=== PATIENT | male | born 1970 | race Hispanic/Latino ===

== ENCOUNTER → 2024-07-28 | Outpatient (CLI) | payer OTHER | END | disposition home or self-care (01) | LOC: SHCH 08:55 | PROVIDERS: ATTEND Student in an Organized Health Care Education/Training Program | DX: I08.0 Rheumatic disorders of both mitral and aortic valves (principal); I25.9 Chronic ischemic heart disease, unspecified | CPT/HCPCS: 93306 ==

== ENCOUNTER → 2024-07-29 | Outpatient (CLI) | payer OTHER | END | disposition home or self-care (01) | LOC: SHCH 10:57 → EDUNIT# 11:40 | PROVIDERS: ATTEND Student in an Organized Health Care Education/Training Program | DX: I25.10 Atherosclerotic heart disease of native coronary artery without angina pectoris (principal) | CPT/HCPCS: 93925 ==

== ENCOUNTER → 2024-08-02 | Outpatient (CLI) | payer OTHER | END | disposition home or self-care (01) | LOC: SHCH 13:04 → EDUNIT# 13:30 | PROVIDERS: ATTEND Student in an Organized Health Care Education/Training Program | DX: I21.29 ST elevation (STEMI) myocardial infarction involving other sites (principal); I11.9 Hypertensive heart disease without heart failure; E78.5 Hyperlipidemia, unspecified; I73.9 Peripheral vascular disease, unspecified; R06.02 Shortness of breath; R60.0 Localized edema; I25.84 Coronary atherosclerosis due to calcified coronary lesion; Z79.899 Other long term (current) drug therapy | CPT/HCPCS: 93970 ==